=== PATIENT | female | born 1950 ===

== ENCOUNTER 2016-12-14 10:36 | Day surgery (SDC) | payer OTHER ==
[2016-12-14 11:01] VITALS: BMI 28.7
[2016-12-14] MEDS ORDERED: Strong Iodine Topical Sol. 5%-10% ONE (13:18)
[2016-12-14] MEDS ORDERED: Acetic Acid 0.25% Irrig Sol ONE (13:18)
[2016-12-14] MEDS ORDERED: Propofol 10 mg/ml Inj (20 ML) ONE (13:23)
[2016-12-14] MEDS ORDERED: Midazolam 2 MG/2 ML VIAL ONE (13:24)
[2016-12-14] MEDS ORDERED: Lidocaine 1% Inj (20ml) ONE (13:29)
[2016-12-14] MEDS ORDERED: Morphine 2 mg/ml ISec IVP PRN (14:22)
[2016-12-14] MEDS ORDERED: Lactated Ringer's 1,000 ML IV SCH (14:22)
[2016-12-14] MEDS ORDERED: Morphine 2 mg/ml ISec ONE (15:19)
[2016-12-14 15:46] VITALS: RESP 18; TEMP 97.6
[2016-12-14 17:02] VITALS: BP 143/87; PULSE 86; O2SAT 96
--- NOTE | 2016-12-17 06:23 | OP ---
PROCEDURE DATE: 12/14/2016 PREOPERATIVE DIAGNOSIS: Endometrial hyperplasia with cervical stenosis. POSTOPERATIVE DIAGNOSIS: Endometrial hyperplasia with cervical stenosis. PROCEDURE PERFORMED: LEEP cone biopsy and a hysteroscopy, dilatation and curettage. SURGEON: Margaux Dias MD TYPE OF ANESTHESIA: General LMA. ESTIMATED BLOOD LOSS: Minimal. DESCRIPTION OF PROCEDURE: After an informed consent was taken, the patient signed her consent. All questions were answered. The patient was brought into the operating room. The patient underwent general LMA anesthesia. She was prepped and draped in usual sterile fashion. The examination under anesthesia revealed the uterus that was top normal size, right and left adnexa were negative. Weighted speculum was inserted into the vaginal vault. Anterior lip of the cervix was visualized and grasped with single-tooth tenaculum. Endocervical canal was noted to be stenotic. Using a point cautery tip, a puncture was made through the stenosis and progressive dilatation was performed. This was then followed with the use of a triangular the endocervical uterine cavity. Massage was performed. The endocervical canal was further dilated and an operative hysteroscope was inserted into the cavity. Visualization of the cavity revealed no polyps. The patient did have an enlarged amount of fluid come out of the os once the os was opened. Both ostia were visualized without difficulty. The remainder of the endocervical canal was found to be normal. A curettage of endometrial cavity was taken as specimen and sent for pathology for examination and this was followed with cauterization of the LEEP area. Hemostasis was excellent. There were no complications occurred. Instruments were removed and accounted for. The patient was gently awakened, sent to the recovery room in stable condition. Margaux Dias MD
== END 2016-12-14 17:15 | disposition home or self-care (01) ==
LOC: SDS 10:36
PROVIDERS: ATTEND Obstetrics & Gynecology Gynecology
DX: N85.00 Endometrial hyperplasia, unspecified (principal); N88.2 Stricture and stenosis of cervix uteri; N88.8 Other specified noninflammatory disorders of cervix uteri
CPT/HCPCS: 57522; 58558; 88307; J1100; J2250; J2270; J2405; J2704; J2765; J3010; J7120 ×2